=== PATIENT | female | born 1955 | race Caucasian/White ===

== ENCOUNTER → 2024-10-04 | Outpatient (CLI) | payer MEDICARE, SELFPAY ==
--- NOTE | 2024-10-04 08:12 | DI.NM.S_ITS ---
PROCEDURE: NM EXERCISE TREADMILL NON NUC COMPARISON: None. INDICATIONS: Dizziness, bradycardia FINDINGS: The patient exercised for 9 minutes and 50 seconds reaching 103% of maximum predicted heart rate. 12.8METs, FI -59%. Appropriate BP response to exercise. No angina during the study. Mild horizontal ST depressions in the inferior and anterolateral leads at rest that worsen with exercise. IMPRESSION: Abnormal treadmill ECG only stress test, probably due to baseline ST changes. No angina during the study. Excellent exercise tolerance (12.8METs, ROHIT -59%). Recommend treadmill nuclear stress test at [facility] for further assessment. Dictated by: Jett Negro MD on 11/03/2024 at 12:29 Approved by: Jett Negro MD on 11/03/2024 at 12:41
== END ==
LOC: NUCM 08:11
PROVIDERS: PCP Nurse Practitioner Primary Care; Referring Provider Nurse Practitioner Primary Care; Visit Provider Nurse Practitioner Primary Care
DX: R42 Dizziness and giddiness (principal); R94.39 Abnormal result of other cardiovascular function study; R00.1 Bradycardia, unspecified; R00.2 Palpitations
CPT/HCPCS: 93017